=== PATIENT | male | born 1990 | race Caucasian/White ===

== ENCOUNTER 2017-06-14 13:44 | Inpatient (IN) | payer OTHER ==
[2017-06-14 16:31] VITALS: BMI 25.2
--- NOTE | 2017-06-14 18:00 | HP ---
Admission [facility] - [facility] Chief Complaint: I WANT TO GO TO REHAB LAST REHAB 2009 [place] PATIENT REPORTS "I LIE TO YOU LAST TIME, I DRINK ALCOHOL 2-3 TIMES PER WEEK." DENIES DRINKING HARD LIQUID Allergies/Adverse Reactions: Allergies Allergy/AdvReac Type Severity Reaction Status Date / Time No Known Allergies Allergy Verified 06/14/17 17:55 History of Present Illness: 26 YEARS OLD MALE WITH LONG HISTORY OF ALCOHOL NICOTINE DEPENDENCE DENIES MEDICAL ISSUE HAS "PSYCHOSIS" LAST EPISODE 2009, DENIES SUICIDAL HOMOCIDAL IDEATION NO SELF DESTRUCTIVE BEHAVIOR IS ADMITTED TO REHAB Exam Limitations: No Limitations - Ebola screening Have you traveled outside of the country in the last 21 days: No Have you had contact with anyone from an Ebola affected area: No Have you been sick,other than usual withdrawal symptoms: No Do you have a fever: No - Review of Systems Constitutional: No Symptoms Reported EENT: reports: No Symptoms Reported Respiratory: reports: No Symptoms reported Cardiac: reports: No Symptoms Reported GI: reports: No Symptoms Reported : reports: No Symptoms Reported Musculoskeletal: reports: No Symptoms Reported Integumentary: reports: No Symptoms Reported Neuro: reports: No Symptoms reported Endocrine: reports: No Symptoms Reported Hematology: reports: No Symptoms Reported Psychiatric: reports: Judgement Intact, Mood/Affect Appropiate, Orientated x3 Other Systems: Reviewed and Negative Patient History - Patient Medical History Hx Anemia: No Hx Asthma: No Hx Chronic Obstructive Pulmonary Disease (COPD): No Hx Cancer: No Hx Cardiac Disorders: No Hx Congestive Heart Failure: No Hx Hypertension: No Hx Hypercholesterolemia: No Hx Pacemaker: No HX Cerebrovascular Accident: No Hx Seizures: No Hx Dementia: No Hx Diabetes: No Hx Gastrointestinal Disorders: No Hx Liver Disease: No Hx Genitourinary Disorders: No Hx Sexually Transmitted Disorders: No Hx Renal Disease (ESRD): No Hx Thyroid Disease: No Hx Human Immunodeficiency Virus (HIV): No Hx Hepatitis C: No Hx Depression: No Hx Suicide Attempt: No Hx Bipolar Disorder: No Hx Schizophrenia: Yes - Patient Surgical History Past Surgical History: No - PPD History Previous Implant?: Yes Documented Results: Negative w/o proof Implanted On Prior [facility] Admission?: No PPD to be Administered?: Yes - Smoking Cessation Smoking history: Current every day smoker Have you smoked in the past 12 months: Yes Aproximately how many cigarettes per day: 10 Cigars Per Day: 0 Hx Chewing Tobacco Use: No Initiated information on smoking cessation: Yes 'Breaking Loose' booklet given: 06/14/17 - Substance & Tx. History Hx Alcohol Use: Yes Hx Substance Use: No Substance Use Type: Alcohol Hx Substance Use Treatment: Yes (2009 [facility]) - Substances Abused Alcohol Route: Oral Frequency: 3-6 times per week Amount used: [id number] Age of first use: 15 Date of Last Use: 06/11/17 Family Disease History - Family Disease History Family Disease History: Diabetes: Father () Admission Physical Exam [facility] - Vital Signs Vital Signs: Vital Signs - 24 hr 06/14/17 16:28 Temperature 97 F L Pulse Rate 86 Respiratory 20 Rate Blood Pressure 118/70 - Physical General Appearance: Yes: No Apparent Distress, Appropriately Dressed, Thin HEENTM: Yes: Hearing grossly Normal, Normal ENT Inspection, Normocephalic, Normal Voice Respiratory: Yes: Chest Non-Tender, Lungs Clear, Normal Breath Sounds, No Respiratory Distress, No Accessory Muscle Use Neck: Yes: Supple, Trachea in good position Breast: Yes: Breasts Symetrical Cardiology: Yes: Regular Rhythm, Regular Rate, S1, S2 Abdominal: Yes: Normal Bowel Sounds, Non Tender, Soft Genitourinary: Yes: Within Normal Limits Back: Yes: Normal Inspection Musculoskeletal: Yes: full range of Motion, Gait Steady Extremities: Yes: Normal Inspection, Normal Range of Motion, Non-Tender Neurological: Yes: Fully Oriented, Alert, Motor Strength 5/5, Normal Mood/Affect , Normal Response Integumentary: Yes: Normal Color, Warm Lymphatic: Yes: Within Normal Limits - Diagnostic (1) Alcohol dependence with uncomplicated withdrawal Current Visit: Yes Status: Acute (2) Nicotine dependence Current Visit: Yes Status: Acute Qualifiers: Nicotine product type: cigarettes Substance use status: in withdrawal Qualified Code(s): F17.213 - Nicotine dependence, cigarettes, with withdrawal (3) Psychoses Current Visit: Yes Status: Suspected Qualifiers: Psychosis type: other Qualified Code(s): F28 - Other psychotic disorder not due to a substance or known physiological condition Cleared for Admission [facility] - Detox or Rehab [facility] Level of Care: Observation Bed Detox Regimen/Protocol: Not Applicable Claeared for Rehab Admission: Yes [facility] Breath Alcohol Content Breath Alcohol Content: 0 Urine Drug Screen - Results Drug Screen Negative: Yes
[2017-06-14] MEDS ORDERED: MENTHOL/PHENOL 1 EACH UD MM PRN (18:06)
[2017-06-14] MEDS ORDERED: P-EPHED 60MG/TRIPROLIDI 2.5MG TABLET PO PRN (18:06)
[2017-06-14] MEDS ORDERED: hydrOXYzine PAMOATE 50 MG CAPSULE (FP) PO PRN (18:06)
[2017-06-14] MEDS ORDERED: ACETAMINOPHEN 325 MG TABLET (FP) PO PRN (18:06)
[2017-06-14] MEDS ORDERED: MAG HYDROX/AL HYDROX/SIMETH 30 ML UNIT-DOSE CUP PO PRN (18:06)
[2017-06-14] MEDS ORDERED: IBUPROFEN 400 MG TABLET (FP) PO PRN (18:06)
[2017-06-14] MEDS ORDERED: MAGNESIUM CITRATE 300 ML BOTTLE PO PRN (18:06)
[2017-06-14] MEDS ORDERED: MAGNESIUM HYDROX 2400MG/30ML ORAL SUSPENSION 30 ML CUP PO PRN (18:06)
[2017-06-14] MEDS ORDERED: guaiFENesin/D-METHORPHAN HB 10 ML UNIT-DOSE CUPS PO PRN (18:06)
[2017-06-14] MEDS ORDERED: NICOTINE POLACRILEX 2 MG GUM BC PRN (18:06)
[2017-06-14] MEDS ORDERED: LOPERAMIDE HCL 2 MG CAPSULE PO PRN (18:06)
[2017-06-14] MEDS: THIAMINE HCL 100 MG TABLET (FP) PO SCH (21:35)
[2017-06-14] MEDS: diphenhydrAMINE HCL 50 MG CAPSULE PO PRN (21:35)
[2017-06-14 23:12] LABS: URINE APPEARANCE CLEAR; URINE BILIRUBIN NEGATIVE (NEGATIVE); URINE BLOOD NEGATIVE (NEGATIVE); URINE COLOR YELLOW; URINE GLUCOSE (UA) NEGATIVE (NEGATIVE); URINE KETONE NEGATIVE (NEGATIVE); URINE LEUK ESTERASE NEGATIVE (NEGATIVE); URINE NITRITE NEGATIVE (NEGATIVE); URINE PROTEIN NEGATIVE (NEGATIVE); URINE UROBILINOGEN NEGATIVE mg/dL (0.2-1.0)
--- NOTE | 2017-06-15 06:21 | HP ---
Psychiatrist Admission - Data Date of interview: 06/15/17 Admission source: [place] Identifying data: This is the first [facility] admission for this 26 years old single male, unemployed on public assistance, living in a residence named [facility] in [place] Medical History: Unremarkable. Smokes 10 cigarettes daily Psychiatric History: Reports that his first psychiatric contact was at age 17 when he was admitted to [facility] for hearing voices and treated with psychotropic medication. he does not recall name of medication. Reports one subsequent psychiatric admission one or two years later at [facility]. He currently receives OPD care on site at his residence and he is prescribed Zyprexa 25 mg po HS, Cogentin 1 mg po HS and Prozac 10 mg po daily. Denies history of suicidal attempt. At present, reports doing fine. Denies experiencing psychotic symptoms as well as SI/HI Physical/Sexual Abuse/Trauma History: Denies history of emotional, physical or sexual abuse as well as DV relationship Additional Comment: Reports history of one felony conviction. Reports being on parole. He does not know parole expiration date Vital Signs: Vital Signs - 24 hr 06/14/17 06/15/17 06/15/17 16:28 00:30 03:30 Temperature 97 F L Pulse Rate 86 Respiratory 20 18 18 Rate Blood Pressure 118/70 Allergies/Adverse Reactions: Allergies Allergy/AdvReac Type Severity Reaction Status Date / Time No Known Allergies Allergy Verified 06/14/17 17:55 Date of last physical exam: 06/14/17 Concur with the findings of this exam: Yes - Substance Abuse/Tx History Hx Alcohol Use: Yes Hx Substance Use: No Substance Use Type: Alcohol (Started drinking alcohol at age 15, consumes 2x 24oz of beer 3-6 times weekly. Last drink on 06/11/17) Hx Substance Use Treatment: Yes - Admission Criteria Previous failed treatment: No Poor recovery environment: Yes Lacks judgement: Yes Mental Status Exam - Mental Status Exam Alert and Oriented to: Time, Place, Person Cognitive Function: Fair Patient Appearance: Well Groomed Mood: Hopeful, Euthymic Patient Behavior: Cooperative Speech Pattern: Clear Voice Loudness: Normal Thought Process: Intact, Goal Oriented Thought Disorder: Not Present Hallucinations: Denies Suicidal Ideation: Denies Homicidal Ideation: Denies Insight/Judgement: Fair Sleep: Well Muscle strength/Tone: Normal Gait/Station: Normal Psychiatric Findings - Problem List ([place] 1, 2,3) (1) Alcohol dependence Current Visit: Yes Status: Acute (2) Nicotine dependence Current Visit: Yes Status: Acute Qualifiers: Nicotine product type: cigarettes Substance use status: in withdrawal Qualified Code(s): F17.213 - Nicotine dependence, cigarettes, with withdrawal (3) Schizophrenia Current Visit: Yes Status: Acute - Initial Treatment Plan Initial Treatment Plan: 1) Continue Prozac 10 mg po daily, Zyprexa 25 mg po HS, Cogentin 1 mg po HS and Naltrexone 50 mg po daily. 2) Monitor progress
[2017-06-15] MEDS: NICOTINE 14 MG/24 HOURS TOPICAL PATCH TD SCH (09:53)
[2017-06-15] MEDS: PRENATAL VITAMINS W/ FOLIC ACID TABLET (FP) PO SCH (09:53)
[2017-06-15 10:06] LABS: MCH 29.5 pg (25.7-33.7); MCHC 33.8 g/dl (32.0-35.9); MEAN CELL VOLUME 87.4 fl (80-96); PLATELET COUNT 175 K/MM3 (134-434); RDW 13.7 % (11.9-15.9); WHITE BLOOD COUNT 4.6 K/mm3 (4.0-10.0)
[2017-06-15 10:19] LABS: ALBUMIN 3.6 g/dl (3.4-5.0); ANION GAP 5 (8-16); CALCIUM 8.8 mg/dL (8.5-10.1); CO2 31 mmol/L (21-32); GLUCOSE,RANDOM 95 mg/dL (74-106); SGOT/AST 43 U/L (15-37); SGPT/ALT 34 U/L (12-78)
[2017-06-15 10:21] LABS: ALK PHOS 83 U/L (45-117); BILIRUBIN,TOTAL 0.4 mg/dL (0.2-1.0); CREATININE 0.8 mg/dL (0.7-1.3); TOT PROT 6.7 g/dl (6.4-8.2)
--- NOTE | 2017-06-15 17:05 | EKG ---
Test Reason : Blood Pressure : / mmHG Vent. Rate : 060 BPM Atrial Rate : 060 BPM P-R Int : 160 ms QRS Dur : 098 ms QT Int : 404 ms P-R-T Axes : 051 084 051 degrees QTc Int : 404 ms NORMAL SINUS RHYTHM INCOMPLETE RBBB NO PREVIOUS ECGS AVAILABLE Confirmed by MITCHELL WOODS MD ([id number]) on 06/15/2017 5:05:37 PM Referred By: Confirmed By:MITCHELL WOODS MD
[2017-06-15] MEDS: NALTREXONE HCL 50 MG TABLET PO SCH (17:14)
[2017-06-15] MEDS: FLUoxetine HCL 10 MG CAPSULE (FP) PO SCH (17:15)
[2017-06-15] MEDS: THIAMINE HCL 100 MG TABLET (FP) PO SCH (21:11)
[2017-06-15] MEDS: OLANZAPINE 20 MG, OLANZAPINE 5 MG PO SCH (21:11)
[2017-06-15] MEDS: BENZTROPINE MESYLATE 1 MG TABLET (FP) PO SCH (21:11)
[2017-06-15] MEDS ORDERED: OLANZapine 5 MG TABLET PO SCH (22:00)
[2017-06-16] MEDS: NICOTINE 14 MG/24 HOURS TOPICAL PATCH TD SCH (09:53)
[2017-06-16] MEDS: NALTREXONE HCL 50 MG TABLET PO SCH (09:53)
[2017-06-16] MEDS: FLUoxetine HCL 10 MG CAPSULE (FP) PO SCH (09:53)
[2017-06-16] MEDS: PRENATAL VITAMINS W/ FOLIC ACID TABLET (FP) PO SCH (09:53)
[2017-06-16] MEDS: OLANZAPINE 20 MG, OLANZAPINE 5 MG PO SCH (21:38)
[2017-06-16] MEDS: THIAMINE HCL 100 MG TABLET (FP) PO SCH (21:38)
[2017-06-16] MEDS: BENZTROPINE MESYLATE 1 MG TABLET (FP) PO SCH (21:39)
[2017-06-17] MEDS: FLUoxetine HCL 10 MG CAPSULE (FP) PO SCH (09:59)
[2017-06-17] MEDS: NICOTINE 14 MG/24 HOURS TOPICAL PATCH TD SCH (09:59)
[2017-06-17] MEDS: NALTREXONE HCL 50 MG TABLET PO SCH (09:59)
[2017-06-17] MEDS: PRENATAL VITAMINS W/ FOLIC ACID TABLET (FP) PO SCH (10:00)
[2017-06-17] MEDS ORDERED: PT OWN MED DRAWER 7, Y5N ONE (11:08)
[2017-06-17] MEDS: THIAMINE HCL 100 MG TABLET (FP) PO SCH (22:20)
[2017-06-17] MEDS: BENZTROPINE MESYLATE 1 MG TABLET (FP) PO SCH (22:20)
[2017-06-17] MEDS: OLANZAPINE 20 MG, OLANZAPINE 5 MG PO SCH (23:15)
[2017-06-18] MEDS: FLUoxetine HCL 10 MG CAPSULE (FP) PO SCH (09:55)
[2017-06-18] MEDS: PRENATAL VITAMINS W/ FOLIC ACID TABLET (FP) PO SCH (09:55)
[2017-06-18] MEDS: NICOTINE 14 MG/24 HOURS TOPICAL PATCH TD SCH (09:55)
[2017-06-18] MEDS: NALTREXONE HCL 50 MG TABLET PO SCH (09:55)
[2017-06-18] MEDS: OLANZAPINE 20 MG, OLANZAPINE 5 MG PO SCH (21:18)
[2017-06-18] MEDS: THIAMINE HCL 100 MG TABLET (FP) PO SCH (21:18)
[2017-06-18] MEDS: BENZTROPINE MESYLATE 1 MG TABLET (FP) PO SCH (21:19)
[2017-06-18] MEDS ORDERED: OLANZapine 10 MG TABLET PO SCH (22:00)
[2017-06-19] MEDS: FLUoxetine HCL 10 MG CAPSULE (FP) PO SCH (09:55)
[2017-06-19] MEDS: NALTREXONE HCL 50 MG TABLET PO SCH (09:55)
[2017-06-19] MEDS: PRENATAL VITAMINS W/ FOLIC ACID TABLET (FP) PO SCH (09:55)
[2017-06-19] MEDS: NICOTINE 14 MG/24 HOURS TOPICAL PATCH TD SCH (09:56)
[2017-06-19] MEDS: BENZTROPINE MESYLATE 1 MG TABLET (FP) PO SCH (21:16)
[2017-06-19] MEDS: diphenhydrAMINE HCL 50 MG CAPSULE PO PRN (21:16)
[2017-06-19] MEDS: OLANZAPINE 20 MG, OLANZAPINE 5 MG PO SCH (21:16)
[2017-06-19] MEDS: THIAMINE HCL 100 MG TABLET (FP) PO SCH (21:16)
[2017-06-20] MEDS: NALTREXONE HCL 50 MG TABLET PO SCH (10:38)
[2017-06-20] MEDS: PRENATAL VITAMINS W/ FOLIC ACID TABLET (FP) PO SCH (10:38)
[2017-06-20] MEDS: FLUoxetine HCL 10 MG CAPSULE (FP) PO SCH (10:38)
[2017-06-20] MEDS: NICOTINE 14 MG/24 HOURS TOPICAL PATCH TD SCH (10:39)
[2017-06-20] MEDS: OLANZAPINE 20 MG, OLANZAPINE 5 MG PO SCH (21:03)
[2017-06-20] MEDS: THIAMINE HCL 100 MG TABLET (FP) PO SCH (21:03)
[2017-06-20] MEDS: BENZTROPINE MESYLATE 1 MG TABLET (FP) PO SCH (21:04)
[2017-06-20] MEDS: diphenhydrAMINE HCL 50 MG CAPSULE PO PRN (21:04)
[2017-06-21] MEDS: NICOTINE 14 MG/24 HOURS TOPICAL PATCH TD SCH (09:53)
[2017-06-21] MEDS: FLUoxetine HCL 10 MG CAPSULE (FP) PO SCH (09:55)
[2017-06-21] MEDS: NALTREXONE HCL 50 MG TABLET PO SCH (09:55)
[2017-06-21] MEDS: PRENATAL VITAMINS W/ FOLIC ACID TABLET (FP) PO SCH (09:55)
[2017-06-21] MEDS ORDERED: PT OWN MED DRAWER 7, Y5N ONE (20:36)
[2017-06-21] MEDS: THIAMINE HCL 100 MG TABLET (FP) PO SCH (21:08)
[2017-06-21] MEDS: OLANZAPINE 20 MG, OLANZAPINE 5 MG PO SCH (21:08)
[2017-06-21] MEDS: BENZTROPINE MESYLATE 1 MG TABLET (FP) PO SCH (21:08)
[2017-06-21] MEDS: diphenhydrAMINE HCL 50 MG CAPSULE PO PRN (21:08)
[2017-06-22] MEDS: NALTREXONE HCL 50 MG TABLET PO SCH (09:52)
[2017-06-22] MEDS: NICOTINE 14 MG/24 HOURS TOPICAL PATCH TD SCH (09:52)
[2017-06-22] MEDS: FLUoxetine HCL 10 MG CAPSULE (FP) PO SCH (09:52)
[2017-06-22] MEDS: PRENATAL VITAMINS W/ FOLIC ACID TABLET (FP) PO SCH (09:52)
[2017-06-22] MEDS: BENZTROPINE MESYLATE 1 MG TABLET (FP) PO SCH (21:34)
[2017-06-22] MEDS: THIAMINE HCL 100 MG TABLET (FP) PO SCH (21:34)
[2017-06-22] MEDS: OLANZapine 10 MG TABLET PO SCH (22:01)
[2017-06-22] MEDS: diphenhydrAMINE HCL 50 MG CAPSULE PO PRN (22:02)
[2017-06-23] MEDS: FLUoxetine HCL 10 MG CAPSULE (FP) PO SCH (09:41)
[2017-06-23] MEDS: PRENATAL VITAMINS W/ FOLIC ACID TABLET (FP) PO SCH (09:41)
[2017-06-23] MEDS: NALTREXONE HCL 50 MG TABLET PO SCH (09:41)
[2017-06-23] MEDS: NICOTINE 14 MG/24 HOURS TOPICAL PATCH TD SCH (09:42)
[2017-06-23] MEDS: diphenhydrAMINE HCL 50 MG CAPSULE PO PRN (21:38)
[2017-06-23] MEDS: BENZTROPINE MESYLATE 1 MG TABLET (FP) PO SCH (21:38)
[2017-06-23] MEDS: THIAMINE HCL 100 MG TABLET (FP) PO SCH (21:38)
[2017-06-23] MEDS: OLANZapine 10 MG TABLET PO SCH (21:39)
[2017-06-24] MEDS: PRENATAL VITAMINS W/ FOLIC ACID TABLET (FP) PO SCH (10:11)
[2017-06-24] MEDS: NALTREXONE HCL 50 MG TABLET PO SCH (10:11)
[2017-06-24] MEDS: FLUoxetine HCL 10 MG CAPSULE (FP) PO SCH (10:11)
[2017-06-24] MEDS: NICOTINE 14 MG/24 HOURS TOPICAL PATCH TD SCH (10:12)
[2017-06-24] MEDS: THIAMINE HCL 100 MG TABLET (FP) PO SCH (21:17)
[2017-06-24] MEDS: BENZTROPINE MESYLATE 1 MG TABLET (FP) PO SCH (21:18)
[2017-06-24] MEDS: OLANZapine 10 MG TABLET PO SCH (21:19)
[2017-06-24] MEDS: diphenhydrAMINE HCL 50 MG CAPSULE PO PRN (21:19)
[2017-06-25] MEDS: PRENATAL VITAMINS W/ FOLIC ACID TABLET (FP) PO SCH (10:31)
[2017-06-25] MEDS: FLUoxetine HCL 10 MG CAPSULE (FP) PO SCH (10:32)
[2017-06-25] MEDS: NALTREXONE HCL 50 MG TABLET PO SCH (10:32)
[2017-06-25] MEDS: NICOTINE 14 MG/24 HOURS TOPICAL PATCH TD SCH (10:32)
[2017-06-25] MEDS: BENZTROPINE MESYLATE 1 MG TABLET (FP) PO SCH (21:28)
[2017-06-25] MEDS: OLANZapine 10 MG TABLET PO SCH (21:28)
[2017-06-25] MEDS: THIAMINE HCL 100 MG TABLET (FP) PO SCH (21:28)
[2017-06-26] MEDS: FLUoxetine HCL 10 MG CAPSULE (FP) PO SCH (10:55)
[2017-06-26] MEDS: NALTREXONE HCL 50 MG TABLET PO SCH (10:55)
[2017-06-26] MEDS: NICOTINE 14 MG/24 HOURS TOPICAL PATCH TD SCH (10:55)
[2017-06-26] MEDS: PRENATAL VITAMINS W/ FOLIC ACID TABLET (FP) PO SCH (10:55)
[2017-06-26] MEDS: BENZTROPINE MESYLATE 1 MG TABLET (FP) PO SCH (21:46)
[2017-06-26] MEDS: OLANZapine 10 MG TABLET PO SCH (21:46)
[2017-06-26] MEDS: THIAMINE HCL 100 MG TABLET (FP) PO SCH (21:47)
[2017-06-27] MEDS: NALTREXONE HCL 50 MG TABLET PO SCH (09:33)
[2017-06-27] MEDS: NICOTINE 14 MG/24 HOURS TOPICAL PATCH TD SCH (09:33)
[2017-06-27] MEDS: PRENATAL VITAMINS W/ FOLIC ACID TABLET (FP) PO SCH (09:33)
[2017-06-27] MEDS: FLUoxetine HCL 10 MG CAPSULE (FP) PO SCH (09:33)
[2017-06-27] MEDS: diphenhydrAMINE HCL 50 MG CAPSULE PO PRN (21:50)
[2017-06-27] MEDS: THIAMINE HCL 100 MG TABLET (FP) PO SCH (21:50)
[2017-06-27] MEDS: OLANZapine 10 MG TABLET PO SCH (21:51)
[2017-06-27] MEDS: BENZTROPINE MESYLATE 1 MG TABLET (FP) PO SCH (21:51)
[2017-06-28] MEDS: NICOTINE 14 MG/24 HOURS TOPICAL PATCH TD SCH (09:46)
[2017-06-28] MEDS: PRENATAL VITAMINS W/ FOLIC ACID TABLET (FP) PO SCH (09:46)
[2017-06-28] MEDS: NALTREXONE HCL 50 MG TABLET PO SCH (09:46)
[2017-06-28] MEDS: FLUoxetine HCL 10 MG CAPSULE (FP) PO SCH (09:46)
[2017-06-28] MEDS: diphenhydrAMINE HCL 50 MG CAPSULE PO PRN (21:35)
[2017-06-28] MEDS: THIAMINE HCL 100 MG TABLET (FP) PO SCH (21:35)
[2017-06-28] MEDS: OLANZapine 10 MG TABLET PO SCH (21:36)
[2017-06-28] MEDS: BENZTROPINE MESYLATE 1 MG TABLET (FP) PO SCH (21:36)
[2017-06-29] MEDS: NALTREXONE HCL 50 MG TABLET PO SCH (09:14)
[2017-06-29] MEDS: PRENATAL VITAMINS W/ FOLIC ACID TABLET (FP) PO SCH (09:14)
[2017-06-29] MEDS: FLUoxetine HCL 10 MG CAPSULE (FP) PO SCH (09:14)
[2017-06-29] MEDS: NICOTINE 14 MG/24 HOURS TOPICAL PATCH TD SCH (09:15)
[2017-06-29] MEDS: THIAMINE HCL 100 MG TABLET (FP) PO SCH (21:24)
[2017-06-29] MEDS: diphenhydrAMINE HCL 50 MG CAPSULE PO PRN (21:24)
[2017-06-29] MEDS: BENZTROPINE MESYLATE 1 MG TABLET (FP) PO SCH (21:24)
[2017-06-29] MEDS: OLANZapine 10 MG TABLET PO SCH (21:25)
[2017-06-30] MEDS: PRENATAL VITAMINS W/ FOLIC ACID TABLET (FP) PO SCH (09:58)
[2017-06-30] MEDS: FLUoxetine HCL 10 MG CAPSULE (FP) PO SCH (09:58)
[2017-06-30] MEDS: NICOTINE 14 MG/24 HOURS TOPICAL PATCH TD SCH (09:58)
[2017-06-30] MEDS: NALTREXONE HCL 50 MG TABLET PO SCH (09:58)
[2017-06-30] MEDS: BENZTROPINE MESYLATE 1 MG TABLET (FP) PO SCH (21:19)
[2017-06-30] MEDS: THIAMINE HCL 100 MG TABLET (FP) PO SCH (21:19)
[2017-06-30] MEDS: diphenhydrAMINE HCL 50 MG CAPSULE PO PRN (21:19)
[2017-06-30] MEDS: OLANZapine 10 MG TABLET PO SCH (21:20)
[2017-07-01] MEDS: FLUoxetine HCL 10 MG CAPSULE (FP) PO SCH (09:58)
[2017-07-01] MEDS: PRENATAL VITAMINS W/ FOLIC ACID TABLET (FP) PO SCH (09:58)
[2017-07-01] MEDS: NICOTINE 14 MG/24 HOURS TOPICAL PATCH TD SCH (09:58)
[2017-07-01] MEDS: NALTREXONE HCL 50 MG TABLET PO SCH (09:58)
[2017-07-01] MEDS: THIAMINE HCL 100 MG TABLET (FP) PO SCH (21:19)
[2017-07-01] MEDS: BENZTROPINE MESYLATE 1 MG TABLET (FP) PO SCH (21:19)
[2017-07-01] MEDS: OLANZapine 10 MG TABLET PO SCH (21:19)
[2017-07-02] MEDS: PRENATAL VITAMINS W/ FOLIC ACID TABLET (FP) PO SCH (09:46)
[2017-07-02] MEDS: NALTREXONE HCL 50 MG TABLET PO SCH (09:46)
[2017-07-02] MEDS: NICOTINE 14 MG/24 HOURS TOPICAL PATCH TD SCH (09:46)
[2017-07-02] MEDS: FLUoxetine HCL 10 MG CAPSULE (FP) PO SCH (09:46)
[2017-07-02] MEDS: diphenhydrAMINE HCL 50 MG CAPSULE PO PRN (21:15)
[2017-07-02] MEDS: THIAMINE HCL 100 MG TABLET (FP) PO SCH (21:15)
[2017-07-02] MEDS: BENZTROPINE MESYLATE 1 MG TABLET (FP) PO SCH (21:15)
[2017-07-02] MEDS: OLANZapine 10 MG TABLET PO SCH (21:16)
[2017-07-03] MEDS: FLUoxetine HCL 10 MG CAPSULE (FP) PO SCH (10:19)
[2017-07-03] MEDS: PRENATAL VITAMINS W/ FOLIC ACID TABLET (FP) PO SCH (10:19)
[2017-07-03] MEDS: NICOTINE 14 MG/24 HOURS TOPICAL PATCH TD SCH (10:19)
[2017-07-03] MEDS: NALTREXONE HCL 50 MG TABLET PO SCH (10:19)
[2017-07-03] MEDS: OLANZapine 10 MG TABLET PO SCH (21:12)
[2017-07-03] MEDS: BENZTROPINE MESYLATE 1 MG TABLET (FP) PO SCH (21:12)
[2017-07-03] MEDS: diphenhydrAMINE HCL 50 MG CAPSULE PO PRN (21:12)
[2017-07-03] MEDS: THIAMINE HCL 100 MG TABLET (FP) PO SCH (21:12)
[2017-07-04] MEDS: NALTREXONE HCL 50 MG TABLET PO SCH (09:52)
[2017-07-04] MEDS: FLUoxetine HCL 10 MG CAPSULE (FP) PO SCH (09:52)
[2017-07-04] MEDS: PRENATAL VITAMINS W/ FOLIC ACID TABLET (FP) PO SCH (09:52)
[2017-07-04] MEDS: NICOTINE 14 MG/24 HOURS TOPICAL PATCH TD SCH (09:52)
[2017-07-04] MEDS: BENZTROPINE MESYLATE 1 MG TABLET (FP) PO SCH (21:27)
[2017-07-04] MEDS: THIAMINE HCL 100 MG TABLET (FP) PO SCH (21:27)
[2017-07-04] MEDS: diphenhydrAMINE HCL 50 MG CAPSULE PO PRN (21:27)
[2017-07-04] MEDS: OLANZapine 10 MG TABLET PO SCH (21:28)
[2017-07-05] MEDS: NALTREXONE HCL 50 MG TABLET PO SCH (09:49)
[2017-07-05] MEDS: FLUoxetine HCL 10 MG CAPSULE (FP) PO SCH (09:49)
[2017-07-05] MEDS: NICOTINE 14 MG/24 HOURS TOPICAL PATCH TD SCH (09:49)
[2017-07-05] MEDS: PRENATAL VITAMINS W/ FOLIC ACID TABLET (FP) PO SCH (09:49)
[2017-07-05] MEDS ORDERED: OLANZapine 5 MG TABLET ONE (20:16)
[2017-07-05] MEDS ORDERED: OLANZapine 10 MG TABLET ONE (20:16)
[2017-07-05] MEDS: BENZTROPINE MESYLATE 1 MG TABLET (FP) PO SCH (21:13)
[2017-07-05] MEDS: OLANZAPINE 20 MG, OLANZAPINE 5 MG PO SCH (21:13)
[2017-07-05] MEDS: THIAMINE HCL 100 MG TABLET (FP) PO SCH (21:13)
[2017-07-05] MEDS: diphenhydrAMINE HCL 50 MG CAPSULE PO PRN (21:13)
[2017-07-06] MEDS: NALTREXONE HCL 50 MG TABLET PO SCH (09:57)
[2017-07-06] MEDS: NICOTINE 14 MG/24 HOURS TOPICAL PATCH TD SCH (09:57)
[2017-07-06] MEDS: FLUoxetine HCL 10 MG CAPSULE (FP) PO SCH (09:57)
[2017-07-06] MEDS: PRENATAL VITAMINS W/ FOLIC ACID TABLET (FP) PO SCH (10:00)
[2017-07-06] MEDS ORDERED: OLANZapine 10 MG TABLET ONE (19:32)
[2017-07-06] MEDS ORDERED: OLANZapine 5 MG TABLET ONE (19:33)
[2017-07-06] MEDS: THIAMINE HCL 100 MG TABLET (FP) PO SCH (21:25)
[2017-07-06] MEDS: OLANZAPINE 20 MG, OLANZAPINE 5 MG PO SCH (21:25)
[2017-07-06] MEDS: BENZTROPINE MESYLATE 1 MG TABLET (FP) PO SCH (21:26)
[2017-07-07] MEDS: FLUoxetine HCL 10 MG CAPSULE (FP) PO SCH (10:04)
[2017-07-07] MEDS: NALTREXONE HCL 50 MG TABLET PO SCH (10:04)
[2017-07-07] MEDS: NICOTINE 14 MG/24 HOURS TOPICAL PATCH TD SCH (10:04)
[2017-07-07] MEDS: PRENATAL VITAMINS W/ FOLIC ACID TABLET (FP) PO SCH (10:04)
[2017-07-07] MEDS ORDERED: OLANZapine 5 MG TABLET ONE (19:51)
[2017-07-07] MEDS ORDERED: OLANZapine 10 MG TABLET ONE (19:51)
[2017-07-07] MEDS: THIAMINE HCL 100 MG TABLET (FP) PO SCH (21:26)
[2017-07-07] MEDS: diphenhydrAMINE HCL 50 MG CAPSULE PO PRN (21:26)
[2017-07-07] MEDS: BENZTROPINE MESYLATE 1 MG TABLET (FP) PO SCH (21:26)
[2017-07-07] MEDS: OLANZAPINE 20 MG, OLANZAPINE 5 MG PO SCH (21:27)
[2017-07-08] MEDS: PRENATAL VITAMINS W/ FOLIC ACID TABLET (FP) PO SCH (10:09)
[2017-07-08] MEDS: NALTREXONE HCL 50 MG TABLET PO SCH (10:09)
[2017-07-08] MEDS: FLUoxetine HCL 10 MG CAPSULE (FP) PO SCH (10:09)
[2017-07-08] MEDS: NICOTINE 14 MG/24 HOURS TOPICAL PATCH TD SCH (10:10)
[2017-07-08] MEDS ORDERED: OLANZapine 5 MG TABLET ONE (20:13)
[2017-07-08] MEDS ORDERED: OLANZapine 10 MG TABLET ONE (20:13)
[2017-07-08] MEDS: OLANZAPINE 20 MG, OLANZAPINE 5 MG PO SCH (21:49)
[2017-07-08] MEDS: THIAMINE HCL 100 MG TABLET (FP) PO SCH (21:50)
[2017-07-08] MEDS: BENZTROPINE MESYLATE 1 MG TABLET (FP) PO SCH (21:50)
[2017-07-08] MEDS: diphenhydrAMINE HCL 50 MG CAPSULE PO PRN (21:51)
[2017-07-09] MEDS: PRENATAL VITAMINS W/ FOLIC ACID TABLET (FP) PO SCH (10:01)
[2017-07-09] MEDS: NALTREXONE HCL 50 MG TABLET PO SCH (10:01)
[2017-07-09] MEDS: FLUoxetine HCL 10 MG CAPSULE (FP) PO SCH (10:01)
[2017-07-09] MEDS: NICOTINE 14 MG/24 HOURS TOPICAL PATCH TD SCH (10:02)
[2017-07-09] MEDS ORDERED: OLANZapine 10 MG TABLET ONE (20:00)
[2017-07-09] MEDS ORDERED: OLANZapine 5 MG TABLET ONE (20:00)
[2017-07-09] MEDS: OLANZAPINE 20 MG, OLANZAPINE 5 MG PO SCH (21:24)
[2017-07-09] MEDS: diphenhydrAMINE HCL 50 MG CAPSULE PO PRN (21:24)
[2017-07-09] MEDS: BENZTROPINE MESYLATE 1 MG TABLET (FP) PO SCH (21:24)
[2017-07-09] MEDS: THIAMINE HCL 100 MG TABLET (FP) PO SCH (21:24)
[2017-07-10] MEDS: FLUoxetine HCL 10 MG CAPSULE (FP) PO SCH (09:40)
[2017-07-10] MEDS: NICOTINE 14 MG/24 HOURS TOPICAL PATCH TD SCH (09:40)
[2017-07-10] MEDS: NALTREXONE HCL 50 MG TABLET PO SCH (09:40)
[2017-07-10] MEDS: PRENATAL VITAMINS W/ FOLIC ACID TABLET (FP) PO SCH (09:40)
[2017-07-10] MEDS ORDERED: OLANZapine 5 MG TABLET ONE (20:47)
[2017-07-10] MEDS ORDERED: OLANZapine 10 MG TABLET ONE (20:47)
[2017-07-10] MEDS: OLANZAPINE 20 MG, OLANZAPINE 5 MG PO SCH (21:27)
[2017-07-10] MEDS: BENZTROPINE MESYLATE 1 MG TABLET (FP) PO SCH (21:28)
[2017-07-10] MEDS: THIAMINE HCL 100 MG TABLET (FP) PO SCH (21:28)
[2017-07-11] MEDS: NALTREXONE HCL 50 MG TABLET PO SCH (09:58)
[2017-07-11] MEDS: NICOTINE 14 MG/24 HOURS TOPICAL PATCH TD SCH (09:58)
[2017-07-11] MEDS: FLUoxetine HCL 10 MG CAPSULE (FP) PO SCH (09:58)
[2017-07-11] MEDS: PRENATAL VITAMINS W/ FOLIC ACID TABLET (FP) PO SCH (09:58)
[2017-07-11] MEDS ORDERED: OLANZapine 5 MG TABLET ONE (20:38)
[2017-07-11] MEDS ORDERED: OLANZapine 10 MG TABLET ONE (20:38)
[2017-07-11] MEDS: THIAMINE HCL 100 MG TABLET (FP) PO SCH (21:29)
[2017-07-11] MEDS: OLANZAPINE 20 MG, OLANZAPINE 5 MG PO SCH (21:29)
[2017-07-11] MEDS: BENZTROPINE MESYLATE 1 MG TABLET (FP) PO SCH (21:30)
--- NOTE | 2017-07-12 06:39 | PN ---
Psychiatric Progress Note Vital Signs: Vital Signs Period Temp Pulse Resp BP Sys/Martinez Pulse Ox Last 24 Hr 97.6 F 55 18-20 119/74 Date of Session: 07/12/17 Chief Complaint:: Discharge Note HPI: Patient addressing Alcohol Dependence comorbid with Nicotine Dependence and Schizophrenia Current Medications: Active Medications Generic Name Dose Route Start Last Admin Trade Name Freq PRN Reason Stop Dose Admin Acetaminophen 650 mg 06/14/17 18:06 Tylenol - PO Q4H PRN PAIN Al Hydroxide/Mg Hydroxide 30 ml 06/14/17 18:06 Mylanta Oral Suspension - PO Q6H PRN DYSPEPSIA Benztropine Mesylate 1 mg 06/15/17 22:00 07/11/17 21:30 Cogentin - PO 1 mg HS DILIA Administration Diphenhydramine HCl 50 mg 06/14/17 18:06 07/09/17 21:24 Benadryl - PO 50 mg HSMR1 PRN Administration INSOMNIA Eucalyptus/Menthol/Phenol/Sorbitol 1 each 06/14/17 18:06 Cepastat Lozenge - MM Q4H PRN SORE THROAT Fluoxetine HCl 10 mg 06/15/17 13:45 07/11/17 09:58 Prozac - PO 10 mg DAILY DILIA Administration Guaifenesin 10 ml 06/14/17 18:06 Robitussin Dm - PO Q6H PRN COUGH Hydroxyzine Pamoate 50 mg 06/14/17 18:06 Vistaril - PO Q4H PRN AGITATION Ibuprofen 400 mg 06/14/17 18:06 07/01/17 00:59 Motrin - PO 400 mg Q6H PRN Administration SEVERE PAIN Loperamide HCl 4 mg 06/14/17 18:06 Imodium - PO Q6H PRN DIARRHEA Magnesium Citrate 300 ml 06/14/17 18:06 Citroma - PO Q48H PRN CONSTIPATION Magnesium Hydroxide 30 ml 06/14/17 18:06 Milk Of Magnesia - PO DAILY PRN CONSTIPATION Naltrexone HCl 50 mg 06/15/17 13:45 07/11/17 09:58 Revia - PO 50 mg DAILY DILIA Administration Nicotine 14 mg 06/15/17 10:00 07/11/17 09:58 Nicoderm Patch - TD 14 mg DAILY DILIA Administration Nicotine Polacrilex 2 mg 06/14/17 18:06 Nicorette Gum - BC Q2H PRN NICOTINE REPLACEMENT RX Olanzapine 20 mg/ Olanzapine 5 25 mg 07/05/17 22:00 07/11/17 21:29 mg PO 25 mg HS DILIA Administration Multivit/Folic Acid/Iron 1 tab 06/15/17 10:00 07/11/17 09:58 Vitamins ([facility]) - PO 1 tab DAILY DILIA Administration Pseudoephedrine/Triprolidine 1 combo 06/14/17 18:06 Actifed - PO TID PRN NASAL CONGESTION Thiamine HCl 100 mg 06/14/17 22:00 07/11/17 21:29 Vitamin B1 - PO 100 mg HS DILIA Administration Current Side Effect: No Lab tests ordered: Yes Lab tests reviewed: Yes Provider note:: Patient has completed this program today. He has met his treatment goals and will continue to address his issues in outpatient treatment at [facility] in [place]. Told card writer hand that from his participation in this program, he has learned the importance of establising a sober support network in order to maintain sobriety. He responded well to Prozac 10 mg po daily, Zyprexa 25 mg po HS, Cogentin 1 mg po HS and Naltrexone 50 mg po daily. Scripts for these medications are electronically transmitted to [facility] at [address] [place] [id number]. He is scheduled for discharge today Total face to face time:: 35 Mental Status Exam - Mental Status Exam Alert and Oriented to: Time, Place, Person Cognitive Function: Fair Patient Appearance: Well Groomed Mood: Hopeful, Euthymic Affect: Appropriate Patient Behavior: Cooperative Speech Pattern: Clear Voice Loudness: Normal Thought Process: Intact, Goal Oriented Thought Disorder: Not Present Hallucinations: Denies Suicidal Ideation: Denies Homicidal Ideation: Denies Insight/Judgement: Fair Sleep: Well Appetite: Good Muscle strength/Tone: Normal Gait/Station: Normal Psychiatric Treatment Plan - Problem List (1) Alcohol dependence Current Visit: Yes (2) Nicotine dependence Current Visit: Yes Qualifiers: Nicotine product type: cigarettes Substance use status: in withdrawal Qualified Code(s): F17.213 - Nicotine dependence, cigarettes, with withdrawal (3) Schizophrenia Current Visit: Yes Initial treatment plan: Patient is discharged today and referred to [facility] in [place], [place] for outpatient treatment
[2017-07-12 06:48] VITALS: BP 114/55; PULSE 67; TEMP 97
[2017-07-12] MEDS: NALTREXONE HCL 50 MG TABLET PO SCH (09:14)
[2017-07-12] MEDS: FLUoxetine HCL 10 MG CAPSULE (FP) PO SCH (09:14)
[2017-07-12] MEDS: PRENATAL VITAMINS W/ FOLIC ACID TABLET (FP) PO SCH (09:14)
[2017-07-12] MEDS: NICOTINE 14 MG/24 HOURS TOPICAL PATCH TD SCH (09:15)
[2017-07-12] MEDS ORDERED: FLUoxetine HCL 10 MG CAPSULE (FP) PO SCH (10:00)
== END 2017-07-12 11:39 | disposition home or self-care (01) | DRG 772 ==
LOC: YASAS 13:44 → Y3W 18:00
PROVIDERS: ADMIT Psychiatry & Neurology Psychiatry; ATTEND Psychiatry & Neurology Psychiatry
PROC: HZ42ZZZ Group Counseling for Substance Abuse Treatment, Cognitive-Behavioral (ICD-10-PCS; principal; 2017-07-10)
DX: F10.20 Alcohol dependence, uncomplicated (principal); F17.213 Nicotine dependence, cigarettes, with withdrawal; F20.9 Schizophrenia, unspecified; F28 Other psychotic disorder not due to a substance or known physiological condition
CPT/HCPCS: 36415; 80053; 81003; 85027; 86593; 86803; 93005; 93010